=== PATIENT | female | born 1955 | race Caucasian/White ===

== ENCOUNTER → 2016-11-25 | Outpatient (CLI) | payer BC ==
--- NOTE | 2016-11-25 09:52 | KCIC ---
EXAM: Thoracic and lumbar spine MRI without contrast. HISTORY: Radiculopathy. TECHNIQUE: Multiplanar and multisequence magnetic resonance imaging of the thoracic and lumbar spine was performed without contrast. COMPARISON: None. FINDINGS: Thoracic spine: There is no significant listhesis. The vertebral bodies are normal in height. There are a few small vertebral body hemangiomas. No suspicious osseous lesion is seen. Limited evaluation of the cervical spine demonstrates straightening of cervical lordosis. There are disc protrusions superimposed on disc bulges with endplate osteophytosis and facet and uncovertebral arthropathy predominantly at C3-C6 and C6-C7, and to a lesser extent, C4-C5. This resulted in deformation of the spinal cord at these levels. This is incompletely evaluated on the current exam. There is a minimal disc bulge at T3-T4 there is thickening or calcification or ossification of the ligamentum flavum at T4-T5, without associated stenosis. There are a few small dilated perineural cysts/nerve root sheath cysts at the thoracic vertebral levels, an incidental finding. No thoracic disc herniation or significant foraminal or central canal stenosis is seen. No spinal cord lesion is seen. Lumbar spine: There is minimal retrolisthesis of L3 on L4. The vertebral bodies are normal in height. No suspicious osseous lesion is seen. There is slight disc desiccation at L3-L4. The conus terminates at L1-L2. There is prominent dorsal epidural fat, not clearly within limits to suggest epidural lipomatosis. There are a few perineural cysts/dilated nerve root sheath cysts at the lumbar levels, an incidental finding. There is a small Tarlov cyst within the sacral canal. At L1-L2, there is no stenosis. At L2-L3, there is no stenosis. At L3-L4, there is a disc bulge and endplate remodeling. There is no stenosis. At L4-L5, there is a disc bulge with right foraminal annular tear and endplate remodeling. There is minimal facet arthropathy. There is no stenosis. At L5-S1, there is no stenosis. IMPRESSION: 1. Mild degenerative change within the thoracic and lumbar spine, described in detail above. There is no significant foraminal or central canal stenosis. 2. 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 This is incompletely evaluated on the current exam. 3. Several small incidental perineural cysts/dilated nerve root sheath cysts within the thoracic and lumbar foraminal and extraforaminal spaces. 4. Focal thickening of the ligamentum flavum at T4-T5. This is not associated with central canal stenosis. Electronically signed by: Jane Bang MD (11/25/2016 9:48 AM)
== END | disposition home or self-care (01) ==
LOC: KCIC MRI 07:37
PROVIDERS: ATTEND Family Medicine
DX: M54.16 Radiculopathy, lumbar region (principal); M54.14 Radiculopathy, thoracic region; M47.896 Other spondylosis, lumbar region; M47.894 Other spondylosis, thoracic region
CPT/HCPCS: 72146; 72148